=== PATIENT | male | born 1985 | race Caucasian/White ===

== ENCOUNTER 2017-03-09 20:51 | Day surgery (SDC) | payer BC ==
--- NOTE | 2017-03-09 21:01 | EDM.PDOC ---
[id number] LODGED IN THROAT Time Seen by Provider: 03/09/17 20:58 - History of Present Illness INITIAL COMMENTS - FREE TEXT/NARRATIVE: HISTORY AND PHYSICAL: History of present illness: Patient 31-year-old male with a history of odynophagia who presents with esophageal food bolus he states this started was eating a piece of chicken for approximately 6 hours he states he is unable to swallow his spit or any liquid. Review of systems: As per history of present illness and below otherwise all systems reviewed and negative. Past medical history: As per history of present illness and as reviewed below otherwise noncontributory. Surgical history: As per history of present illness and as reviewed below otherwise noncontributory. Social history: No reported history of drug or alcohol abuse. Family history: As per history of present illness and as reviewed below otherwise noncontributory. Physical exam: HEENT: Atraumatic, normocephalic, pupils reactive, negative for conjunctival pallor or scleral icterus, mucous membranes moist, throat clear, neck supple, nontender, trachea midline. Lungs: Clear to auscultation, breath sounds equal bilaterally, chest nontender. Heart: S1S2, regular, negative for clicks, rubs, or JVD. Abdomen: Soft, nondistended, nontender. Negative for masses or hepatosplenomegaly. Negative for costovertebral tenderness. Pelvis: Stable nontender. Genitourinary: Deferred. Rectal: Deferred. Extremities: Atraumatic, negative for cords or calf pain. Neurovascular unremarkable. Neuro: Awake, alert, oriented. Cranial nerves II through XII unremarkable. Cerebellum unremarkable. Motor and sensory unremarkable throughout. Exam nonfocal. Diagnostics: CBC CMP chest x-ray Therapeutics: Normal saline 1 L bolus glucagon 1 mg IV Impression: #1 esophageal food bolus Definitive disposition and diagnosis as appropriate pending reevaluation and review of above. - Related Data Allergies Allergy/AdvReac Type Severity Reaction Status Date / Time No Known Allergies Allergy Verified 03/09/17 20:57 Home Meds: Home Meds Pantoprazole [ProTONIX] 40 mg PO ACBREAKFAST #60 tab.cr 03/09/17 [Rx] Sucralfate [Carafate] 1 gm PO TIDAC #42 tab 03/09/17 [Rx] ED ROS GENERAL - Review of Systems Review Of Systems: ROS reveals no pertinent complaints other than HPI. ED EXAM, GENERAL - Physical Exam Exam: See Below (The dictation) Course - Vital Signs Last Recorded V/S: Last Vital Signs Temp 36.1 C 03/10/17 01:15 Pulse 67 03/10/17 01:15 Resp 18 03/10/17 01:15 BP 128/69 03/10/17 01:15 Pulse Ox 95 03/10/17 01:15 - Orders/Labs/Meds Orders: Active Orders 24 hr Category Date Time Status Chest 1V Frontal [CR] Stat Exams 03/09/17 21:04 Taken Labs: Laboratory Tests 03/09/17 03/09/17 Range/Units 21:05 21:05 WBC 7.18 (4.0-11.0) K/uL RBC 5.08 (4.50-5.90) M/uL Hgb 15.4 (13.0-17.0) g/dL Hct 44.7 (38.0-50.0) % MCV 88.0 (80.0-98.0) fL MCH 30.3 (27.0-32.0) pg MCHC 34.5 (31.0-37.0) g/dL RDW Std Deviation 43.1 (28.0-62.0) fl RDW Coeff of Bernard 14 (11.0-15.0) % Plt Count 201 (150-400) K/uL MPV 11.50 (7.40-12.00) fL Neut % (Auto) 55.6 (48.0-80.0) % Lymph % (Auto) 33.3 (16.0-40.0) % [place] % (Auto) 6.3 (0.0-15.0) % Eos % (Auto) 4.5 (0.0-7.0) % Baso % (Auto) 0.3 (0.0-1.5) % Neut # (Auto) 4.0 (1.4-5.7) K/uL Lymph # (Auto) 2.4 (0.6-2.4) K/uL [place] # (Auto) 0.5 (0.0-0.8) K/uL Eos # (Auto) 0.3 (0.0-0.7) K/uL Baso # (Auto) 0.0 (0.0-0.1) K/uL Nucleated RBC % 0.0 /100WBC Nucleated RBCs # 0 K/uL Sodium 142 (136-146) mmol/L Potassium 4.1 (3.5-5.1) mmol/L Chloride 110 (98-110) mmol/L Carbon Dioxide 25 (21-31) mmol/L BUN 16 (6.0-23.0) mg/dL Creatinine 1.1 (0.6-1.5) mg/dL Est Cr Clr Drug Dosing 95.52 mL/min Estimated GFR (MDRD) > 60.0 ml/min Glucose 96 (60-110) mg/dL Calcium 9.3 (8.8-10.8) mg/dL Total Bilirubin 0.8 (0.1-1.5) mg/dL AST 43 H (5-40) IU/L ALT 61 H (8-54) IU/L Alkaline Phosphatase 54 (40-150) Total Protein 7.8 (6.0-8.0) g/dL Albumin 4.7 (3.5-5.0) g/dL Globulin 3.1 (2.0-3.5) g/dL Albumin/Globulin Ratio 1.5 (1.3-2.8) Meds: Medications Discontinued Medications Generic Name Dose Route Start Last Admin Trade Name Vy PRN Reason Stop Dose Admin Dexamethasone Confirm 03/09/17 22:25 Dexamethasone Administered 03/09/17 22:26 Dose 20 mg .ROUTE .STK-MED ONE Fentanyl Confirm 03/09/17 21:49 Sublimaze Administered 03/09/17 21:50 Dose 100 mcg .ROUTE .STK-MED ONE Glucagon 1 mg 03/09/17 21:06 03/09/17 21:14 Glucagen IVPUSH 03/09/17 21:07 1 mg ONETIME ONE Administration Sodium Chloride 1,000 mls @ 999 mls/hr 03/09/17 21:05 03/09/17 21:10 Normal Saline IV 03/09/17 22:05 999 mls/hr STAT ONE Administration Ketorolac Tromethamine Confirm 03/09/17 22:25 Toradol Administered 03/09/17 22:26 Dose 30 mg .ROUTE .STK-MED ONE Lidocaine Confirm 03/09/17 21:49 Xylocaine-Mpf 2% Administered 03/09/17 21:50 Dose 5 ml .ROUTE .STK-MED ONE Ondansetron HCl Confirm 03/09/17 22:18 Zofran Administered 03/09/17 22:19 Dose 4 mg .ROUTE .STK-MED ONE Propofol Confirm 03/09/17 21:49 Diprivan 20 Ml Administered 03/09/17 21:50 Dose 200 mg .ROUTE .STK-MED ONE Succinylcholine Chloride Confirm 03/09/17 21:49 Succinylcholine In Ns Pf Administered 03/09/17 21:50 Dose 200 mg .ROUTE .STK-MED ONE Departure - Departure Time of Disposition: 21:00 Disposition: Refer to Observation Condition: Good Clinical Impression: Esophageal obstruction due to food impaction - Discharge Information - My Orders Last 24 Hours: My Active Orders 03/09/17 21:04 Chest 1V Frontal [CR] Stat - Assessment/Plan Last 24 Hours: My Active Orders 03/09/17 21:04 Chest 1V Frontal [CR] Stat
[2017-03-09] MEDS ORDERED: Sodium Chloride 0.9% 1,000 ML IV ONE (21:05)
[2017-03-09] MEDS ORDERED: Glucagon,Human Recombinant 1 MG Vial IVPUSH ONE (21:06)
[2017-03-09 21:34] LABS: CHLORIDE,CL 110 mmol/L (98-110); SODIUM,NA 142 mmol/L (136-146)
--- NOTE | 2017-03-09 21:42 | PCM.PREANE ---
Preanesthetic Assessment - Anesthesia/Transfusion/Family Hx Anesthesia History: Prior Anesthesia Without Reaction Family History of Anesthesia Reaction: No Transfusion History: No Prior Transfusion(s) - Review of Systems General: No Symptoms Pulmonary: No Symptoms Cardiovascular: No Symptoms Gastrointestinal: Difficulty swallowing (R/T HPI) Neurological: No Symptoms Other: Reports: None - Physical Assessment NPO Status Date: 03/09/17 NPO Status Time: 14:00 O2 Sat by Pulse Oximetry: 98 Respiratory Rate: 16 Vital Signs: Last Vital Signs Temp 36.4 C 03/09/17 20:58 Pulse 84 03/09/17 20:58 Resp 16 03/09/17 20:58 BP 124/88 03/09/17 20:58 Pulse Ox 98 03/09/17 20:58 Height: 1.75 m Weight: 88 kg ASA Class: 2E Mental Status: Alert & Oriented x3 Airway Class: Mallampati = 2 Dentition: Reports: Normal Dentition Thyro-Mental Finger Breadths: 3 Mouth Opening Finger Breadths: 3 ROM/Head Extension: Full Lungs: Clear to auscultation, Normal respiratory effort Cardiovascular: Regular Rate, Regular Rhythm - Lab Values: Laboratory Last Values WBC 7.18 K/uL (4.0-11.0) 03/09/17 21:05 RBC 5.08 M/uL (4.50-5.90) 03/09/17 21:05 Hgb 15.4 g/dL (13.0-17.0) 03/09/17 21:05 Hct 44.7 % (38.0-50.0) 03/09/17 21:05 MCV 88.0 fL (80.0-98.0) 03/09/17 21:05 MCH 30.3 pg (27.0-32.0) 03/09/17 21:05 MCHC 34.5 g/dL (31.0-37.0) 03/09/17 21:05 RDW Std Deviation 43.1 fl (28.0-62.0) 03/09/17 21:05 RDW Coeff of Bernard 14 % (11.0-15.0) 03/09/17 21:05 Plt Count 201 K/uL (150-400) 03/09/17 21:05 MPV 11.50 fL (7.40-12.00) 03/09/17 21:05 Neut % (Auto) 55.6 % (48.0-80.0) 03/09/17 21:05 Lymph % (Auto) 33.3 % (16.0-40.0) 03/09/17 21:05 [place] % (Auto) 6.3 % (0.0-15.0) 03/09/17 21:05 Eos % (Auto) 4.5 % (0.0-7.0) 03/09/17 21:05 Baso % (Auto) 0.3 % (0.0-1.5) 03/09/17 21:05 Neut # (Auto) 4.0 K/uL (1.4-5.7) 03/09/17 21:05 Lymph # (Auto) 2.4 K/uL (0.6-2.4) 03/09/17 21:05 [place] # (Auto) 0.5 K/uL (0.0-0.8) 03/09/17 21:05 Eos # (Auto) 0.3 K/uL (0.0-0.7) 03/09/17 21:05 Baso # (Auto) 0.0 K/uL (0.0-0.1) 03/09/17 21:05 Nucleated RBC % 0.0 /100WBC 03/09/17 21:05 Nucleated RBCs # 0 K/uL 03/09/17 21:05 Sodium 142 mmol/L (136-146) 03/09/17 21:05 Potassium 4.1 mmol/L (3.5-5.1) 03/09/17 21:05 Chloride 110 mmol/L (98-110) 03/09/17 21:05 Carbon Dioxide 25 mmol/L (21-31) 03/09/17 21:05 BUN 16 mg/dL (6.0-23.0) 03/09/17 21:05 Creatinine 1.1 mg/dL (0.6-1.5) 03/09/17 21:05 Est Cr Clr Drug Dosing 95.52 mL/min 03/09/17 21:05 Estimated GFR (MDRD) > 60.0 ml/min 03/09/17 21:05 Glucose 96 mg/dL (60-110) 03/09/17 21:05 Calcium 9.3 mg/dL (8.8-10.8) 03/09/17 21:05 Total Bilirubin 0.8 mg/dL (0.1-1.5) 03/09/17 21:05 AST 43 IU/L (5-40) H 03/09/17 21:05 ALT 61 IU/L (8-54) H 03/09/17 21:05 Alkaline Phosphatase 54 (40-150) 03/09/17 21:05 Total Protein 7.8 g/dL (6.0-8.0) 03/09/17 21:05 Albumin 4.7 g/dL (3.5-5.0) 03/09/17 21:05 Globulin 3.1 g/dL (2.0-3.5) 03/09/17 21:05 Albumin/Globulin Ratio 1.5 (1.3-2.8) 03/09/17 21:05 - Allergies Allergies/Adverse Reactions: Allergies Allergy/AdvReac Type Severity Reaction Status Date / Time No Known Allergies Allergy Verified 03/09/17 20:57 - Acknowledgements Anesthesia Type Planned: General Anesthesia Pt an Appropriate Candidate for the Planned Anesthesia: Yes Alternatives and Risks of Anesthesia Discussed w Pt/Guardian: Yes Pt/Guardian Understands and Agrees with Anesthesia Plan: Yes PreAnesthesia Questionnaire HEENT History: Reports: None Cardiovascular History: Reports: None Respiratory History: Reports: None Psychiatric History: Reports: None - Infectious Disease History Infectious Disease History: Reports: Chicken Pox - Past Surgical History HEENT Surgical History: Reports: None Cardiovascular Surgical History: Reports: None GI Surgical History: Reports: Appendectomy Musculoskeletal Surgical History: Reports: Shoulder Surgery - SUBSTANCE USE Smoking Status *Q: Never Smoker - HOME MEDS Home Medications: Home Meds . [No Known Home Meds] 03/09/17 [History] - CURRENT (IN HOUSE) MEDS Current Meds: Current Medications Sodium Chloride (Normal Saline) 1,000 mls @ 999 mls/hr IV STAT ONE Stop: 03/09/17 22:05 Last Admin: 03/09/17 21:10 Dose: 999 mls/hr Discontinued Medications Glucagon (Glucagen) 1 mg IVPUSH ONETIME ONE Stop: 03/09/17 21:07 Last Admin: 03/09/17 21:14 Dose: 1 mg
[2017-03-09] MEDS ORDERED: fentaNYL 100 MCG/2 ML SDV ONE (21:49)
[2017-03-09] MEDS ORDERED: Succinylcholine/Normal Saline 200 MG/10 ML Syringe ONE (21:49)
[2017-03-09] MEDS ORDERED: Lidocaine 2% 5 ML SDV ONE (21:49)
[2017-03-09] MEDS ORDERED: Propofol 200 MG/20 ML SDV ONE (21:49)
[2017-03-09] MEDS ORDERED: Ondansetron 4 MG/2 ML SDV ONE (22:18)
[2017-03-09] MEDS ORDERED: Dexamethasone 4 MG/ML 5 ML MDV ONE (22:25)
[2017-03-09] MEDS ORDERED: Ketorolac 30 MG/ML SDV ONE (22:25)
--- NOTE | 2017-03-09 23:10 | PCM.POSTAN ---
POST ANESTHESIA ASSESSMENT - MENTAL STATUS Mental Status: alert, oriented - RESPIRATORY Respiratory Status: respiratory rate WNL, airway patent, O2 saturation stable - CARDIOVASCULAR CV Status: pulse rate WNL, blood pressure stable - GASTROINTESTINAL GI Status: no symptoms - POST OP HYDRATION Hydration Status: adequate & stable
--- NOTE | 2017-03-09 23:10 | PCM48HPAN ---
Post Anesthesia Note - EVALUATION WITHIN 48HRS OF ANESTHETIC Vital Signs in Normal Range: Yes Patient Participated in Evaluation: Yes Respiratory Function Stable: Yes Airway Patent: Yes Cardiovascular Function Stable: Yes Hydration Status Stable: Yes Pain Control Satisfactory: Yes Nausea and Vomiting Control Satisfactory: Yes Mental Status Recovered: Yes
--- NOTE | 2017-03-09 23:18 | PCM.OPNOTE ---
- General Post-Op/Procedure Note Date of Surgery/Procedure: 03/09/17 Operative Procedure(s): EGD with food disimpaction Findings: Gastritis, duodenitis with superficial ulcers of duodenum with stigmata of bleeding. Food impacted in mid to distal esophagus Pre Op Diagnosis: food impaction Post-Op Diagnosis: Food impaction, dysphagia, gastritis, duodenitis, and duodenal ulcers Anesthesia Technique: MAC Primary Surgeon: Shania Schafer Condition: Good Free Text/Narrative:: Intake & Output 03/09/17 03/09/17 03/10/17 14:59 22:59 06:59 Intake Total 700 Balance 700
[2017-03-10 01:49] VITALS: BP 128/69
--- NOTE | 2017-03-10 02:51 | OR ---
SURGEON: WADE JUAREZ MD DATE OF PROCEDURE: 03/09/2017 PREOPERATIVE DIAGNOSIS: Food impaction. POSTOPERATIVE DIAGNOSES: Food impaction, gastritis, duodenitis. PROCEDURE PERFORMED: EGD with food disimpaction. ANESTHESIA: General endotracheal anesthesia. INSTRUMENT USED: Olympus endoscope. EXTENT OF EXAM: To the second portion of the duodenum. FINDINGS: Large piece of chicken impacted in the mid to distal esophagus. The patient was found to have gastritis with duodenitis. The patient had multiple superficial duodenal ulcers with stigmata of recent bleeding. COMPLICATIONS: None. INDICATIONS: The patient is a 31-year-old male, who presents to the emergency room 6 hours after impacting a piece of chicken in his esophagus. The patient has had swallowing difficulties for sometime, but has never had it worked up. The patient has never had food impacted before. He took one bite of chicken this afternoon and felt the food get stuck. He feels like there is pressure retrosternally and that the food is stuck in his upper esophagus. The patient has been unable to tolerate even saliva without vomiting. The patient was given glucagon with no results. The patient and I discussed the need for an EGD with food disimpaction. We discussed the procedure as well as the risks including bleeding, infection, or damage to surrounding structures, including perforation. The patient verbalized understanding and wishes to proceed. PROCEDURE IN DETAIL: The patient was brought into the operating room suite and placed on the OR cart in supine position. A time-out was completed verifying the patient's name, age, date of , allergies, and procedure to be performed. General endotracheal anesthesia was then induced with rapid sequence intubation. After adequate sedation was achieved, an Olympus endoscope was placed in the patient's mouth and advanced under direct visualization to the mid esophagus. Upon entering the mid to distal esophagus, a large piece of meat was discovered and found to be impacted. I attempted to suction this out and push it forward with no success. A three-prong grasper was brought in and the piece of food was taken out in piecemeal fashion. The last bits of foods were then able to be passed into the patient's stomach. Upon entering the stomach, I noticed inflammation consistent with gastritis in the distal antrum. The scope was then brought into the second portion of the duodenum where the patient was noted to have multiple superficial ulcerations with stigmata of recent bleeding. There were no deep singular ulcers noted. In the first portion of the duodenum, there was evidence of duodenitis. Using the scope, I took a photograph of the second portion of the duodenum as well as the first portion of the duodenum for documentation. The scope was then brought into the stomach and a photograph was taken of the pylorus and the GE junction. The patient had no evidence of a hiatal hernia. Biopsies were taken of the antrum, body, and fundus and sent for pathology and H. pylori testing. The scope was then brought into the distal esophagus and a photograph was taken of the GE junction, which appeared slightly erythematous. A photograph was also taken of the area of obstruction. No stricture or esophageal webs were noted. The remainder of the esophagus appeared normal. The scope was removed from the patient and the procedure terminated. The patient was taken to the PACU in stable condition. DEDE MARQUEZ /[id number]
--- NOTE | 2017-03-10 03:15 | HP ---
DATE OF : 1985 PRIMARY CARE PHYSICIAN: None PCP CHIEF COMPLAINT: Food impaction. HISTORY OF PRESENT ILLNESS: The patient is a 31-year-old male, who presents to the emergency room 6 hours after a meal. He was eating a piece of chicken when he felt it get stuck in his upper to mid esophagus. He attempted to swallow water and immediately vomited this up. The patient has been unable to tolerate oral secretions. The patient has had a year worth of dysphagia, but has never had it worked up. He has never had a food impaction before. He denies any heartburn, but has some retrosternal pressure. He denies any fevers, chills, or heart palpitations. He has not been sick recently. PAST MEDICAL HISTORY: The patient denies any past medical history. PAST SURGICAL HISTORY: The patient has had a previous appendectomy and right shoulder labrum repair. FAMILY HISTORY: Father from lymphoma. SOCIAL HISTORY: The patient denies any heavy drinking, tobacco use, or drug use. PHYSICAL EXAMINATION: VITAL SIGNS: Blood pressure 124/88, heart rate 84, respiratory rate 16, O2 sats 98, and temperature 36.4 degrees. GENERAL: Well developed, normal-appearing male, in [id number] distress. HEENT: Head normocephalic and atraumatic. Eyes, pupils equal, round, reactive to light and accommodation. Ears and nose are normal externally. Mouth, lips appear normal. Mucous membranes moist. Posterior oropharynx appears normal. NECK: Supple. Trachea midline. No evidence of crepitus. LUNGS: Clear to auscultation bilaterally. HEART: Regular rate and rhythm. ABDOMEN: Flat, soft, and nontender. EXTREMITIES: Warm and well perfused. ASSESSMENT: Food impaction. PLAN: The patient and I discussed the possible etiologies that could lead to his food impaction. We will take him to the operating room tonight to perform an EGD with food bolus removal. We discussed the procedure as well as expected perioperative course. We discussed the risks, including bleeding, infection, or damage to surrounding structures, including perforation. The patient verbalized understanding and wished to proceed. The patient will then need to follow up with me in clinic in 2 weeks to discuss the findings, further workup, and any treatment. DEDE MARQUEZ /[id number]
--- NOTE | 2017-03-10 13:19 | CR ---
EXAM DATE: 03/09/17 PATIENT'S AGE: 31 Patient: JOSE CLEMENTE Facility: [place], [place] Site . Site : 1985 Study: XRay Chest [id number]/12/2017 9:26:32 PM Ordering Physician: Dalia Saab Final Report: INDICATIONS: Possible food lodged in esophagus. TECHNIQUE: Chest 1 view. COMPARISON: None FINDINGS: No pneumothorax, pleural effusion or airspace consolidation. Cardiac and mediastinal contours are within normal limits. Upper abdomen and osseous structures show no acute abnormality. IMPRESSION: No evidence of acute cardiopulmonary disease. Dictated by Deni Montgomery MD @ 03/09/2017 9:33:08 PM Dictated by: Deni Montgomery MD @ 03/09/2017 21:33:18 (Electronic Signature) Report Signed by Proxy. [facility] CENTERLorraine
== END 2017-03-10 01:25 | disposition home or self-care (01) ==
LOC: MW.ED 20:51 → MW.SDS 21:43 → MW.MS 23:27 → MW.SDS 03-10 01:25
PROVIDERS: ATTEND Surgery
PROC: 0DC58ZZ Extirpation of Matter from Esophagus, Via Natural or Artificial Opening Endoscopic (ICD-10-PCS; principal; 2017-03-09)
PROC: 0DB68ZX Excision of Stomach, Via Natural or Artificial Opening Endoscopic, Diagnostic (ICD-10-PCS; 2017-03-09)
DX: T18.128A Food in esophagus causing other injury, initial encounter (principal); K29.50 Unspecified chronic gastritis without bleeding; K26.4 Chronic or unspecified duodenal ulcer with hemorrhage; Z90.49 Acquired absence of other specified parts of digestive tract; Z98.890 Other specified postprocedural states
CPT/HCPCS: 36415; 43239; 43247; 71010; 80053; 85025; 96361; 96374; 99285; J1100; J1610; J1885; J2405; J3010; J7040; 00740; 88305; 88312; 99282; J2704